=== PATIENT | female | born 1980 | race African-American/Black ===

== ENCOUNTER 2017-01-10 03:52 | Emergency (ER) | payer OTHER ==
--- NOTE | ~2017-01-10 | US67 ---
[facility] A Service of [facility] RADIOLOGY TEXT RESULTS PATIENT: AUSTEN OSHEA LOCATION: [facility] : 82 UNIT #: [id number] AGE: [address]: Conner Brunner MD SEX: F ORDER DR: [id number] [facility] [address] [place], [place] [address] [id number] E MR#: [id number] #: [id number] NAME: AUSTEN OSHEA : 1980 SEX: F STUDY DATE/TIME: 01/10/2017 7:43 UNIT: [facility] ROOM: STUDY DESCRIPTION: US Gallbladder Attending Physician: Conner Brunner M.D. Ordering Physician: Conner Brunner M.D. Primary Care Physician: Primary Care Physician No MEDICAL IMAGING REPORT This report is preliminary unless electronic signature is present EXAM Ultrasound of the gallbladder INDICATION The patient has right upper quadrant pain, nausea and vomiting for e days. TECHNIQUE Altman-scale and color Doppler sonographic images were obtained through the right upper quadrant. FINDINGS Visualized portions of the pancreas appear unremarkable. Sonography reports fatty infiltration of the liver, although this is not convincingly demonstrated on the submitted images. Certainly, the liver is enlarged measuring up to 17.6 cm in craniocaudal dimensions. No lesions are identified within the liver. There is no intra- or extrahepatic biliary dilatation. Main portal vein is patent with hepatopetal flow. Gallbladder is normal in appearance with no stones or sludge seen. There is no gallbladder wall thickening or pericholecystic fluid. IMPRESSION Hepatomegaly. Program Management Manager also reports diffuse hepatic steatosis. However, this is not well seen on the submitted images. The patient's gallbladder appears normal. Dictated by... Hailee Thompson M.D. THIS IS AN ELECTRONICALLY VERIFIED REPORT Hailee Thompson M.D. at 01/10/2017 11:19 AM [facility] A Service [facility] RADIOLOGY TEXT RESULTS PATIENT: AUSTEN OSHEA LOCATION: [facility] : 82 UNIT #: [id number] AGE: [address]: Conner Brunner MD SEX: F ORDER DR: SMITA/jenny TD: 01/10/2017 09:25 JOB #: [id number] MEDICAL IMAGING REPORT Page 1 of 1 COPY
[~2017-01-10 03:52] MED LIST: AUGMENTIN PO; BACTRIM DS TABL1 TA1 PO; FLEXERIL10 M1 PO; HIBICLENS 4% L120 ML EXT; KEFLEX500 MG PO; MEDROL DOSEPAK4 MG PO; MEDROL4 MG/DOSE- PO; NAPROSYN500 MG PO; VICODIN 5/1 TAB 5/50 PO
[2017-01-10 05:47] LABS: BASOPHIL% 0.3 % (0-2.5); EOSINOPHIL% 0.2 % (0.0-7.0); HEMATOCRIT 40.8 % (35.0-45.0); HEMOGLOBIN 13.2 gm/dL (12.0-16.0); LYMPHOCYTE# 1.2 X10e3 (1.0-3.5); LYMPHOCYTE% 12.2 % (17.0-45.0); MEAN CELL VOLUME 95.6 FL (83-96); MEAN CORPUSCULAR HEMOGLOBIN 30.9 PG (28-34); MEAN CORPUSCULAR HGB CONC 32.3 g/dL (30-36); MEAN PLATELET VOLUME 8.7 FL (6.5-11.5); MONOCYTE# 1.2 X10e3 (0-1.0); MONOCYTE% 12.8 % (3.0-12.0); NEUTROPHIL# 7.1 X10e3 (1.5-7.1); NEUTROPHIL% 74.5 % (40-75); PLATELET COUNT 218 X10e3 (140-420); RED BLOOD COUNT 4.27 X10e (3.90-5.30); WHITE BLOOD COUNT 9.5 X10e3 (4.0-10.5)
[2017-01-10 05:50] LABS: DIFF IND NO
[2017-01-10 06:26] LABS: ALBUMIN SERUM 3.8 g/dL (3.5-5.0); BILIRUBIN, DIRECT 0.1 mg/dL (0.0-0.2); BILIRUBIN,INDIRECT 0.3 mg/dL (0.0-0.9); BILIRUBIN,TOTAL 0.4 mg/dL (0.2-2.0); CALCIUM SERUM 9.1 mg/dL (8.4-10.2); GLOM FILT RATE Estimated 84.6 mL/min (>60); POTASSIUM 3.5 mmol/L (3.5-5.1); PROTEIN TOTAL SERUM 7.5 g/dL (6.0-8.3)
[2017-01-10 06:45] LABS: URINE SOURCE CLEAN CATCH
[2017-01-10 06:55] LABS: URINE APPEARANCE CLOUDY; URINE BILIRUBIN NEG (NEG); URINE BLOOD 2+ (NEG); URINE COLOR DK YELLOW; URINE GLUCOSE NEG (NEG); URINE KETONE 3+ (NEG); URINE LEUKOCYTE ESTERASE 2+ (NEG); URINE NITRATE POS (NEG); URINE PROTEIN 1+ (NEG); URINE SPECIFIC GRAVITY 1.022 (1.003-1.035)
[2017-01-10 06:56] LABS: CULTURE INDICATED? YES; URINE BACTERIA AUWI 4+ (NEGATIVE); URINE SQUAMOUS EPITHELIAL CELL OCC /[HPF]
[2017-01-10 07:11] LABS: URINE MUCUS PRESENT
[2017-01-10 07:12] LABS: UWBCS1 AUWI 50-100 (0-5)
== END 2017-01-10 09:45 | disposition home or self-care (01) ==
LOC: CED 03:52
PROVIDERS: Emergency Medicine
DX: N30.00 Acute cystitis without hematuria (principal); F17.210 Nicotine dependence, cigarettes, uncomplicated
CPT/HCPCS: 36415; 76705; 80048; 80076; 81003; 82150; 83690; 84703; 85025; 87086; 87088; 87186; 96361; 96365; 96375; 96376; 99284; J0696; J2270; J2405